=== PATIENT | male | born 1980 | race Two or more races ===

== ENCOUNTER 2019-02-17 02:55 | Emergency (ER) | payer OTHER ==
[~2019-02-17] VITALS: Ht 157.5 cm; Wt 72.6 kg
[2019-02-17 03:04] VITALS: BP 143/98
--- NOTE | 2019-02-17 04:15 | NUR ---
PT ATTEMPTING TO LEAVE FACILITY. PER VERBAL MD ORDER, PT NEEDS TO BE PICKED UP BY SOMEONE IN ORDER TO BE DISCHARGED DUE TO INTOXICATION AND UNSTEADY GAIT. PT NEEDED TO BE ESCORTED BACK TO BED BY SECURITY.
--- NOTE | 2019-02-17 04:48 | NUR ---
PT AAOX4. DENIES SI/HI AT THIS TIME. ABLE TO AMBULATE WITH STEADY GAIT. VITAL SIGNS STABLE. Patient discharged to home in stable condition. Written and verbal after care instructions given. Patient verbalizes understanding of instruction.
== END 2019-02-17 04:55 | disposition home or self-care (01) ==
LOC: ER 03:09
DX: F10.129 Alcohol abuse with intoxication, unspecified (principal); E11.9 Type 2 diabetes mellitus without complications; F31.9 Bipolar disorder, unspecified; Z60.2 Problems related to living alone; Y90.9 Presence of alcohol in blood, level not specified
CPT/HCPCS: 82962-TC